=== PATIENT | female | born 1980 | race Caucasian/White ===

== ENCOUNTER 2023-12-07 18:05 | Emergency (ER) | payer MEDICAID, SELFPAY ==
[2023-12-07 18:10] VITALS: BP 136/89; PULSE 92; RESP 18; TEMP 36.7; O2SAT 97; BMI 32.1
--- NOTE | 2023-12-07 18:24 | ED.GENADUL1 ---
HPI - General Adult General Chief complaint: Nausea/Vomiting/Diarrhea Stated complaint: Nausea/Vomiting/Diarrhea Time Seen by Provider: 12/07/23 18:07 Source: patient Mode of arrival: walk-in Limitations: no limitations History of Present Illness HPI narrative: Patient is a 43-year-old female who presents to the emergency department for 2-day history of Nausea, vomiting and diarrhea.She has had subjective fever, abdominal cramping, no significant cough or congestion. She denies urinary symptoms. She is not concerned for . She states her fianc? is also being seen for the same. She denies recent travel or antibiotics. No medications taken prior to arrival. Patient states she is now drinking fluids well, she has not had any vomiting since yesterday. She is urinating regularly and does not feel she is dehydrated. She states she was concerned because she continues to have diarrhea, no blood in her stool. Related Data Previous Rx's ?Medication ?Instructions ?Recorded hyoscyamine sulfate 0.125 mg 0.125 mg PO Q6H PRN abdominal pain 12/07/23 tablet (Levsin) #12 tabs ondansetron 4 mg disintegrating 4 mg PO Q6H PRN nausea and 12/07/23 tablet vomiting #12 tabs Allergies Allergy/AdvReac Type Severity Reaction Status Date / Time No Known Drug Allergies Allergy Verified 12/07/23 18:10 Review of Systems ROS Constitutional Denies: fever or chills Ears, nose, mouth, and throat Denies: throat pain or nasal congestion Cardiovascular Denies: chest pain Respiratory Denies: shortness of breath or cough Gastrointestinal Reports: abdominal pain, nausea, vomiting and diarrhea Musculoskeletal Denies: back pain or neck pain Integumentary/Breast Denies: rash Neurological Denies: headache Exam Narrative Exam Narrative: Gen.: Awake, alert, in no distress Head: Normocephalic, atraumatic ENT: Moist mucous membranes Respiratory: No respiratory distress, lungs clear bilaterally Cardio: Regular rate and rhythm Gastrointestinal: Abdomen is soft, nondistended and nontender to palpation Extremities: Moves extremities equally Psych: Normal mood and affect Neuro: No focal neuro deficit Skin: Warm, dry, intact Constitutional Vital Signs, click to edit/add: Last Vital Signs Temp 98.0 F 12/07/23 18:10 Pulse 92 H 12/07/23 18:10 Resp 18 12/07/23 18:10 BP 136/89 12/07/23 18:10 Pulse Ox 97 12/07/23 18:10 O2 Del Method Room Air 12/07/23 18:10 Course Vital Signs Vital signs: Vital Signs Temperature 98.0 F 12/07/23 18:10 Pulse Rate 92 H 12/07/23 18:10 Respiratory Rate 18 12/07/23 18:10 Blood Pressure 136/89 12/07/23 18:10 Pulse Oximetry 97 12/07/23 18:10 Oxygen Delivery Method Room Air 12/07/23 18:10 Temperature 98.0 F 12/07/23 18:10 Pulse Rate 92 H 12/07/23 18:10 Respiratory Rate 18 12/07/23 18:10 Blood Pressure 136/89 12/07/23 18:10 Pulse Oximetry 97 12/07/23 18:10 Oxygen Delivery Method Room Air 12/07/23 18:10 Medical Decision Making MDM Narrative Medical decision making narrative: Patient treated with Zofran and Levsin in the ER. She is actively drinking Fluids with no vomiting in the ER. She was not able to produce a stool specimen. Lab studies show the patient has a normal white blood cell count and normal electrolytes. She has negative viral testing and will be discharged home with stool testing, a short course of antiemetics and Levsin. Follow-up with PCP and return to the ER if symptoms change or worsen. Medical Records Medical records reviewed: Yes I reviewed the patient's medical records Lab Data Lab results reviewed: Yes I reviewed the patient's lab results Labs: Lab Results 12/07/23 12/07/23 Range/Units 18:13 18:32 WBC 7.8 (4.0-11.0) 10^3/uL RBC 4.36 (4.20-5.40) 10^6/uL Hgb 13.8 (12.0-16.0) g/dL Hct 41.0 (36.0-48.0) % MCV 94.0 (81.0-99.0) fL MCH 31.7 (26.7-34.0) pg MCHC 33.7 (29.9-35.2) g/dL RDW 11.9 (11.0-15.0) % Plt Count 193 (150-450) 10^3/uL MPV 10.8 (9.5-13.5) fL Neut % (Auto) 59.0 (43.0-75.0) % Lymph % (Auto) 30.6 (20.5-60.0) % [place] % (Auto) 6.1 (1.7-12.0) % Eos % (Auto) 3.1 (0.9-7.0) % Baso % (Auto) 0.8 (0.2-2.0) % Neut # (Auto) 4.6 (1.4-6.5) 10^3/uL Lymph # (Auto) 2.4 (1.2-3.8) 10^3/uL [place] # (Auto) 0.5 (0.3-0.8) 10^3/uL Eos # (Auto) 0.2 (0.0-0.7) 10^3/uL Baso # (Auto) 0.1 (0.0-0.1) 10^3/uL Abs Immat Gran (auto) 0.03 (0.00-0.03) 10^3/uL Imm/Tot Granulo (auto) 0.4 (0.0-0.5) % Sodium 137 (136-145) mmol/L Potassium 3.6 (3.5-5.1) mmol/L Chloride 103 (98-107) mmol/L Carbon Dioxide 26.0 (21.0-32.0) mmol/L Anion Gap 11.6 BUN 15.0 (7.0-18.0) mg/dL Creatinine 0.81 (0.55-1.02) mg/dL Est GFR ( Amer) >60 (>=60) Est GFR (Non-Af Amer) >60 (>=60) BUN/Creatinine Ratio 18.5 Glucose 137 H (74-106) mg/dL Calcium 8.5 (8.5-10.1) mg/dL Influenza Type A Ag Negative Influenza Type B Ag Negative SARS-CoV-2 Ag (CV2AG) Negative (NEGATIVE) Discharge Plan Discharge Stand Alone Forms: Portal Instructions Chief Complaint: Nausea/Vomiting/Diarrhea Clinical Impression: Diarrhea, Nausea Patient Disposition: Home, Self-Care Time of Disposition Decision: 18:52 Condition: Good Prescriptions / Home Meds: New hyoscyamine sulfate [Levsin] 0.125 mg tablet 0.125 mg PO Q6H PRN (Reason: abdominal pain) Qty: 12 0RF ondansetron 4 mg tablet,disintegrating 4 mg PO Q6H PRN (Reason: nausea and vomiting) Qty: 12 0RF Print Language: Maltese Instructions: Acute Nausea and Vomiting (ED), Acute Diarrhea (ED) Referrals: Isra Horton MD [Primary Care Provider] - 1 week
[2023-12-07] MEDS: ONDANSETRON 4 MG RAPDIS TABLET SL (18:32)
[2023-12-07] MEDS: HYOSCYAMINE SULFATE 0.125 MG TAB.SUBL SL (18:32)
[2023-12-07 18:41] LABS: Basophils Absolute Auto 0.1 10^3/uL (0.0-0.1); Basophils Percent Auto 0.8 % (0.2-2.0); Eosinophils Absolute Auto 0.2 10^3/uL (0.0-0.7); Eosinophils Percent Auto 3.1 % (0.9-7.0); Hemoglobin 13.8 g/dL (12.0-16.0); Immature Granulocytes Abs Auto 0.03 10^3/uL (0.00-0.03); Immature Granulocytes Pct Auto 0.4 % (0.0-0.5); Lymphocytes Absolute Auto 2.4 10^3/uL (1.2-3.8); Lymphocytes Percent Auto 30.6 % (20.5-60.0); Mean Corpuscular HGB Conc 33.7 g/dL (29.9-35.2); Mean Corpuscular Hemoglobin 31.7 pg (26.7-34.0); Mean Platelet Volume 10.8 fL (9.5-13.5); Monocytes Absolute Auto 0.5 10^3/uL (0.3-0.8); Monocytes Percent Auto 6.1 % (1.7-12.0); Neutrophils Absolute Auto 4.6 10^3/uL (1.4-6.5); Platelet Count 193 10^3/uL (150-450); Red Blood Count 4.36 10^6/uL (4.20-5.40); Red Cell Distribution Width 11.9 % (11.0-15.0); White Blood Count 7.8 10^3/uL (4.0-11.0)
[2023-12-07 18:46] LABS: Influenza Virus A Antigen Negative; Influenza Virus B Antigen Negative; Internal Control Within Normal Limits; SARS-CoV-2 Ag NEGATIVE (NEGATIVE)
[2023-12-07 18:50] LABS: Anion Gap 11.6; BUN Creatinine Ratio 18.5; Calcium 8.5 mg/dL (8.5-10.1); Chloride 103 mmol/L (98-107); Estimated GFR (African America >60 (>=60); Estimated GFR (Non-African Ame >60 (>=60); Glucose 137 mg/dL (74-106); Potassium 3.6 mmol/L (3.5-5.1); Sodium 137 mmol/L (136-145)
== END 2023-12-07 19:03 | disposition home or self-care (01) ==
PROVIDERS: Physician Assistant; Emergency Provider Emergency Medicine; PCP Family Medicine
DX: R19.7 Diarrhea, unspecified (principal); R11.10 Vomiting, unspecified; Z20.822 Contact with and (suspected) exposure to COVID-19
CPT/HCPCS: 36415; 80048; 85025; 87507; 87804; 87811; 99285

== ENCOUNTER 2025-07-01 13:49 | Emergency (ER) | payer OTHER, SELFPAY ==
[2025-07-01 13:54] VITALS: BP 122/90; PULSE 86; TEMP 36.9; O2SAT 97; BMI 32.9
--- NOTE | 2025-07-01 14:01 | ED.GENADUL1 ---
HPI HPI - General Adult General Chief complaint: Animal Bite Stated complaint: animal bite Time Seen by Provider: 07/01/25 13:50 Source: patient Mode of arrival: walk-in History of Present Illness HPI narrative: 45-year-old female presented to the emergency department for a cat bite to her right hand. This was sustained 2 hours ago by her own kitten. 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 She is right-handed. It is been an unknown amount of time since she last had a tetanus immunization. She states its become swollen and it hurts to move her fingers. Related Data Previous Rx's ?Medication ?Instructions ?Recorded amoxicillin 875 mg-potassium 1 tab PO BID #10 tabs 07/01/25 clavulanate 125 mg tablet Allergies Allergy/AdvReac Type Severity Reaction Status Date / Time No Known Drug Allergies Allergy Verified 12/07/23 18:10 Review of Systems ROS Narrative A ten point review of systems is negative except as noted above. PFSH PFSH Social History Little interest or pleasure in doing things: not at all Feeling down, depressed, or hopeless: not at all Exam Narrative Exam Narrative: Nurses note and vital signs reviewed and patient is not hypoxic. General:The patient appears well and in no apparent distress.Patient is resting comfortably on cart. Skin:Warm, dry, no pallor noted.There is no rash noted. Head:Normocephalic, atraumatic Eye: Normal conjunctiva, no drainage Ears, Nose, Mouth, and Throat: oral mucosa is moist. Nares patent. Cardiovascular:Regular Rate and Rhythm Respiratory:Patient is in no distress, no accessory muscle use Back:non-tender, no CVA tenderness bilaterally to percussion. GI: Soft and nontender Musculoskeletal: Several puncture baum are present on the dorsum of the right hand. There is some mild swelling. Neurological:A&O, normal speech Psychiatric:Cooperative Constitutional Vital Signs, click to edit/add: Last Vital Signs Temp 98.4 F 07/01/25 13:54 Pulse 86 07/01/25 13:54 Resp 18 07/01/25 13:54 BP 122/90 07/01/25 13:54 Pulse Ox 97 10/12/25 13:54 O2 Del Method Room Air 07/01/25 13:54 Course Vital Signs Vital signs: Vital Signs Temperature 98.4 F 07/01/25 13:54 Pulse Rate 86 07/01/25 13:54 Respiratory Rate 18 07/01/25 13:54 Blood Pressure 122/90 07/01/25 13:54 Pulse Oximetry 97 07/01/25 13:54 Oxygen Delivery Method Room Air 07/01/25 13:54 Temperature 98.4 F 07/01/25 13:54 Pulse Rate 86 07/01/25 13:54 Respiratory Rate 18 07/01/25 13:54 Blood Pressure 122/90 07/01/25 13:54 Pulse Oximetry 97 07/01/25 13:54 Oxygen Delivery Method Room Air 07/01/25 13:54 Medical Decision Making MDM Narrative Medical decision making narrative: Tetanus status is updated and she was prescribed prophylactic Augmentin. Treatment diagnosis and follow-up were discussed with the patient. Differential Diagnosis Differential Diagnosis: Cat bite Discharge Plan Discharge Chief Complaint: Animal Bite Clinical Impression: Cat bite Patient Disposition: Home, Self-Care Time of Disposition Decision: 14:00 Condition: Good Mode of Transportation: Private Vehicle Prescriptions / Home Meds: New amoxicillin-pot clavulanate 875-125 mg tablet 1 tab PO BID Qty: 10 0RF Print Language: Icelandic Instructions: Animal Bite (ED) Additional Instructions: Ice and elevate to decrease swelling. Referrals: Isra Horton MD [Primary Care Provider, Family Practice] - 1 week
[2025-07-01] MEDS: DIPHTH,PERTUSS(ACELL),TET VAC 0.5 ML SYRINGE IM (14:11)
== END 2025-07-01 14:30 | disposition home or self-care (01) ==
PROVIDERS: Emergency Provider Emergency Medicine; PCP Family Medicine
DX: S61.431A Puncture wound without foreign body of right hand, initial encounter (principal); W55.01XA Bitten by cat, initial encounter; Z23 Encounter for immunization
CPT/HCPCS: 90471; 90715; 99284

== ENCOUNTER 2025-07-02 08:33 | Emergency (ER) | payer OTHER, SELFPAY ==
[2025-07-02 08:37] VITALS: BP 147/95; PULSE 87; TEMP 36.8; O2SAT 99; BMI 32.9
--- NOTE | 2025-07-02 08:47 | ED.GENADUL1 ---
HPI HPI - General Adult General Chief complaint: Skin/Abscess/Foreign Body Stated complaint: CAT BITE - 07/01/2025 Time Seen by Provider: 07/02/25 08:35 Source: patient Mode of arrival: walk-in Limitations: no limitations History of Present Illness HPI narrative: 45-year-old female presents for pain in her right hand. She had been bitten by a cat yesterday morning and was seen here. She had a tetanus immunization updated and she was placed on Augmentin and she is taking 2 doses. She continues to have pain and some swelling particularly in the fifth digit area. She is requesting no narcotics. Related Data Previous Rx's ?Medication ?Instructions ?Recorded amoxicillin 875 mg-potassium 1 tab PO BID #10 tabs 07/01/25 clavulanate 125 mg tablet Allergies Allergy/AdvReac Type Severity Reaction Status Date / Time No Known Drug Allergies Allergy Verified 12/07/23 18:10 Opioid HPI Opioid Management Most Recent Opioid Data: Last Pain Scale 8 Today, 09:03 Last MAR Pain Assessment Today, 09:03 Review of Systems ROS Narrative A ten point review of systems is negative except as noted above. PFSH PFSH Social History Little interest or pleasure in doing things: not at all Feeling down, depressed, or hopeless: not at all Exam Narrative Exam Narrative: Nurses note and vital signs reviewed and patient is not hypoxic. General:The patient appears in no acute distress. Skin:Warm, dry, no pallor noted.There is no rash noted. Head:Normocephalic, atraumatic Eye: Normal conjunctiva, no drainage Ears, Nose, Mouth, and Throat: oral mucosa is moist. Nares patent. Cardiovascular:Regular Rate and Rhythm Respiratory:Patient is in no distress, no accessory muscle use, lungs are clear to auscultation, no wheezing, rales or rhonchi Back:non-tender, no CVA tenderness bilaterally to percussion. GI: Soft and nontender Musculoskeletal: The right hand is examined. Healing puncture baum are present on the dorsum of the hand and she has swelling on the ulnar side of her hand. She is reluctant to move her fifth finger. Neurological:A&O, normal speech Psychiatric:Cooperative, tearful Constitutional Vital Signs, click to edit/add: Last Vital Signs Temp 98.3 F 07/02/25 08:37 Pulse 87 07/02/25 08:37 Resp 20 07/02/25 08:37 BP 147/95 H 07/02/25 08:37 Pulse Ox 99 07/02/25 08:37 O2 Del Method Room Air 07/02/25 08:37 Course Vital Signs Vital signs: Vital Signs Temperature 98.3 F 07/02/25 08:37 Pulse Rate 87 07/02/25 08:37 Respiratory Rate 20 07/02/25 08:37 Blood Pressure 147/95 H 07/02/25 08:37 Pulse Oximetry 99 07/02/25 08:37 Oxygen Delivery Method Room Air 07/02/25 08:37 Temperature 98.3 F 07/02/25 08:37 Pulse Rate 87 07/02/25 08:37 Respiratory Rate 20 07/02/25 08:37 Blood Pressure 147/95 H 07/02/25 08:37 Pulse Oximetry 99 07/02/25 08:37 Oxygen Delivery Method Room Air 07/02/25 08:37 Medical Decision Making MDM Narrative Medical decision making narrative: She was given IV Unasyn. Splint applied, application checked by me and found to be appropriate, she is neurovascular intact. She does not require admission to the hospital at this point but she will return if symptoms worsen. She will continue the Augmentin. Treatment diagnosis and follow-up were discussed with the patient. Differential Diagnosis Differential Diagnosis: Cat bite Lab Data Lab results reviewed: Yes I reviewed the patient's lab results Labs: Lab Results 07/02/25 Range/Units 09:02 WBC 10.0 (4.0-11.0) 10^3/uL RBC 4.68 (4.20-5.40) 10^6/uL Hgb 15.3 (12.0-16.0) g/dL Hct 43.2 (36.0-48.0) % MCV 92.3 (81.0-99.0) fL MCH 32.7 (26.7-34.0) pg MCHC 35.4 H (29.9-35.2) g/dL RDW 11.9 (11.0-15.0) % Plt Count 199 (150-450) 10^3/uL MPV 11.1 (9.5-13.5) fL Neut % (Auto) 71.3 (43.0-75.0) % Lymph % (Auto) 19.8 L (20.5-60.0) % [place] % (Auto) 6.4 (1.7-12.0) % Eos % (Auto) 1.4 (0.9-7.0) % Baso % (Auto) 0.6 (0.2-2.0) % Neut # (Auto) 7.2 H (1.4-6.5) 10^3/uL Lymph # (Auto) 2.0 (1.2-3.8) 10^3/uL [place] # (Auto) 0.6 (0.3-0.8) 10^3/uL Eos # (Auto) 0.1 (0.0-0.7) 10^3/uL Baso # (Auto) 0.1 (0.0-0.1) 10^3/uL Abs Immat Gran (auto) 0.05 H (0.00-0.03) 10^3/uL Imm/Tot Granulo (auto) 0.5 (0.0-0.5) % Sodium 140 (136-145) mmol/L Potassium 3.9 (3.5-5.1) mmol/L Chloride 104 (98-107) mmol/L Carbon Dioxide 25.5 (21.0-32.0) mmol/L Anion Gap 14.4 BUN 8.0 (7.0-18.0) mg/dL Creatinine 0.61 (0.55-1.02) mg/dL Est GFR ( Amer) >60 (>=60 mL/min/1.73m^2) Est GFR (Non-Af Amer) >60 (>=60 mL/min/1.73m^2) BUN/Creatinine Ratio 13.1 Glucose 104 (74-106) mg/dL Calcium 9.2 (8.5-10.1) mg/dL Discharge Plan Discharge Chief Complaint: Skin/Abscess/Foreign Body Clinical Impression: Cat bite Patient Disposition: Home, Self-Care Time of Disposition Decision: 10:54 Condition: Good Mode of Transportation: Private Vehicle Prescriptions / Home Meds: No Action amoxicillin-pot clavulanate 875-125 mg tablet 1 tab PO BID Qty: 10 0RF Print Language: Yi Instructions: Animal Bite (ED) Referrals: Naderer,Isra, MD [Primary Care Provider, Family Practice] - 1 week
[2025-07-02] MEDS: AMPICILLIN SODIUM/SULBACTAM NA 3 GM in 0.9 % SODIUM CHLORIDE 100 ML IV (09:03)
[2025-07-02] MEDS: KETOROLAC TROMETHAMINE 30 MG/ML VIAL IVP (09:03)
[2025-07-02 09:10] LABS: Hematocrit 43.2 % (36.0-48.0); Hemoglobin 15.3 g/dL (12.0-16.0); Immature Granulocytes Abs Auto 0.05 10^3/uL (0.00-0.03); Immature Granulocytes Pct Auto 0.5 % (0.0-0.5); Lymphocytes Absolute Auto 2.0 10^3/uL (1.2-3.8); Mean Corpuscular HGB Conc 35.4 g/dL (29.9-35.2); Mean Corpuscular Hemoglobin 32.7 pg (26.7-34.0); Mean Corpuscular Volume 92.3 fL (81.0-99.0); Platelet Count 199 10^3/uL (150-450); Red Blood Count 4.68 10^6/uL (4.20-5.40); White Blood Count 10.0 10^3/uL (4.0-11.0)
[2025-07-02 09:25] LABS: Anion Gap 14.4; Blood Urea Nitrogen 8.0 mg/dL (7.0-18.0); Calcium 9.2 mg/dL (8.5-10.1); Carbon Dioxide 25.5 mmol/L (21.0-32.0); Chloride 104 mmol/L (98-107); Estimated GFR (African America >60 (>=60 mL/min/1.73m^2); Estimated GFR (Non-African Ame >60 (>=60 mL/min/1.73m^2); Glucose 104 mg/dL (74-106); Potassium 3.9 mmol/L (3.5-5.1); Sodium 140 mmol/L (136-145)
== END 2025-07-02 11:04 | disposition home or self-care (01) ==
PROVIDERS: Emergency Provider Emergency Medicine; PCP Family Medicine
DX: S61.451A Open bite of right hand, initial encounter (principal); W55.01XA Bitten by cat, initial encounter; M79.641 Pain in right hand; R22.31 Localized swelling, mass and lump, right upper limb
CPT/HCPCS: 36415; 80048; 85025; 96365; 96375; 99284; J0295; J1885